=== PATIENT | male | born 1940 | race Caucasian/White ===

== ENCOUNTER → 2017-10-04 | Outpatient (CLI) | payer MEDICARE, OTHER ==
[~2017-10-04] MED LIST: AMIODARONE HCL100 MG PO; ASPIR 8181 MG PO; BRILINTA90 MG PO; CARVEDILOL6.25 MG; COMBIVENT INH; COZAAR 50 MG TA50 M2 PO; CRESTOR10 MG PO; DEMADEX20 MG PO; LISINOPRIL10 MG PO; LOPRESSOR25 PO; PACERONE 200 M200 M1 PO; PLAVIX 75 MG TA75 M1 PO; PRIMIDONE50 MG PO; SPIRONOLACTONE25 MG PO; TOPROL XL50 MG PO
--- NOTE | 2017-10-04 13:38 | 2DMMODE ---
[place] [address] 2 D/M-MODE ECHOCARDIOGRAM Name: PHANAMILCAR MONTAÑO Room: [facility]#: [id number] Admission: 10/04/17 Attend Phys: Archie Neely, Discharge: Date of : 44 Date of Service: 10/04/17 1338 Report #: [id number] THIS REPORT FOR: //name// APPROVED REPORT Study performed: 10/04/2017 09:05:18 EXAM: Comprehensive 2D, Doppler, and color-flow Echocardiogram Patient Location: Out-Patient Status: routine BSA: 1.85 HR: 74 bpm BP: 110/70 mmHg Other Information Study Quality: Good Indications Cardiomyopathy 2D Dimensions LVEF(%): 44.64 (>50%) IVSd: 12.19 (7-11mm) LVOT Diam: 20.61 (18-24mm) LVDd: 58.99 mm PWd: 10.86 (7-11mm) Ascending Ao: 29.47 (22-36mm) LVDs: 45.70 (25-40mm) Aortic Root: 28.15 mm Roberson's LVEF: 44.64 % Volumes Left Atrial Volume (Systole) LA ESV Index: 23.30 mL/m2 Aortic Valve AoV Peak Bryson.: 1.03 m/s AO Peak Gr.: 4.27 mmHg LVOT Max P.07 mmHg AO Mean Gr.: 2.39 mmHg LVOT Mean P.95 mmHg LVOT Max V: 0.72 m/s AO V2 VTI: 20.59 cm LVOT Mean V: 0.44 m/s WILLIAMS (VTI): 2.04 cm2 LVOT V1 VTI: 12.62 cm Mitral Valve E/A Ratio: 0.52 MV Decel. Time: 217.55 [place] [address] 2 D/M-MODE ECHOCARDIOGRAM Name: AMILCAR CHISHOLM Room: [facility]#: [id number] Admission: 10/04/17 Attend Phys: Archie Neely, Discharge: Date of : 44 Date of Service: 10/04/17 1338 Report #: [id number] MV E Max Bryson.: 0.49 m/s MV PHT: 63.09 ms MVA (PHT): 3.49 cm2 TDI E/Lateral E': 7.00 E/Medial E': 8.17 Medial E' Bryson.: 0.06 m/s Lateral E' Bryson.: 0.07 m/s Pulmonary Valve PV Peak Bryson.: 0.78 m/s PV Peak Gr.: 2.45 mmHg Left Ventricle Left ventricle is mildly dilated. There is diffuse hypokinesis of LV wall motion There is normal left ventricular wall thickness. Left ventricular systolic function is severely decreased. LVEF is 25%. Grade I - abnormal relaxation pattern. Right Ventricle The right ventricle is normal size. The right ventricular systolic function is normal. Atria The left atrium size is normal. The right atrium size is normal. Aortic Valve Aortic valve is mildly calcified. Trace aortic regurgitation. There is no aortic valvular stenosis. Mitral Valve The mitral valve is normal in structure. Mild mitral regurgitation. No evidence of mitral valve stenosis. Tricuspid Valve The tricuspid valve is normal in structure. There is no tricuspid valve regurgitation noted. Pulmonic Valve The pulmonary valve is normal in structure. Mild pulmonic regurgitation. Great Vessels The aortic root is normal in size. IVC is normal in size and collapses with >50% [place] [address] 2 D/M-MODE ECHOCARDIOGRAM Name: PHANAMILCAR MONTAÑO Room: [facility]#: [id number] Admission: 10/04/17 Attend Phys: Archie Neely, Discharge: Date of : 44 Date of Service: 10/04/17 1338 Report #: [id number] Pericardium There is no pericardial effusion. <Conclusion> Left ventricle is mildly dilated. There is normal left ventricular wall thickness. Left ventricular systolic function is severely decreased. LVEF is 25%. Grade I - abnormal relaxation pattern. The right ventricle is normal size. The left atrium size is normal. The right atrium size is normal. Aortic valve is mildly calcified. Trace aortic regurgitation. There is no aortic valvular stenosis. The mitral valve is normal in structure. Mild mitral regurgitation. The tricuspid valve is normal in structure. IVC is normal in size and collapses with >50% inspiration There is no pericardial effusion. There is diffuse hypokinesis of LV wall motion <ELECTRONICALLY SIGNED> By: Pranav Gabriel MD, FACC 10/04/17 1338 1338 1338 Pranav Gabriel MD, FACC /INF
== END ==
LOC: M.CRD 08:56
DX: I25.5 Ischemic cardiomyopathy (principal); I34.0 Nonrheumatic mitral (valve) insufficiency; I37.1 Nonrheumatic pulmonary valve insufficiency; I70.0 Atherosclerosis of aorta; I21.3 ST elevation (STEMI) myocardial infarction of unspecified site; I25.119 Atherosclerotic heart disease of native coronary artery with unspecified angina pectoris

== ENCOUNTER → 2017-11-09 | Outpatient (CLI) | payer MEDICARE, OTHER ==
--- NOTE | 2017-11-24 10:46 | SLEEP ---
[address] [address] SLEEP STUDY REPORT Name: PHANAMILCAR Armenta Room: [facility]#: [id number] Admission: 11/09/17 Attend Phys: Archie Neely MD Discharge: Date of : 44 Report #: [id number] THIS REPORT FOR: //name// CC: Sarah Neely This study has been reviewed in its entirety by a board certified sleep specialist date of service 11/09/2017 REFERRING PHYSICIAN: Archie Neely MD [facility]. TYPE OF STUDY: Split night study. METHOD: The following parameters were monitored: Frontal, central and occipital EEG; electro-oculogram; submentalis EMG; nasal and oral airflow; anterior tibialis EMG; body position and electrocardiogram. Additionally, thoracic and abdominal movements were recorded by inductance plethysmography. Oxygen saturation was monitored using pulse oximeter. The tracing was scored using 30-second epochs. Hypopneas were scored per the [place] [employer] definition using the 4% desaturation criteria. DIAGNOSTIC PORTION OF THE STUDY:. During the diagnostic portion of the study, the total recording time was 190.2 minutes. Total sleep time was 118 minutes. Sleep efficiency was 62%. Latency to sleep was 31.8 minutes. SLEEP STAGING: Stage N1 was 36.4% of total sleep time, stage N2 of 44.9% of total sleep time and stage REM 18.9%, total sleep time and no N3 was recorded. RESPIRATORY DATA: During the diagnostic portion of the study, a total of 50 episodes of central apneas were recorded. Occasional episodes of hypopneas were recorded with a total apnea-hypopnea index of 26.9. It was noted these episodes were more pronounced in supine position. OXYGEN DATA: The average O2 saturation recorded was 96%. The lowest O2 saturation recorded was 92%. The limb movement index during the diagnostic portion of the study was 47.8. The average heart rate was 76.7, with no arrhythmias reported. Minimal snoring was recorded during the study. During the titration portion of the study, the patient was titrated on BiPAP at the pressure of 9/6, 10/5, 10/6, 10/7, 11/6, 11/7, 12/6, 12/7, 13/7 cm of water of BiPAP. The longest duration of sleep was captured during pressure of 12/6 cm of water where the central apneas had improved with overall apnea-hypopnea index was 13.8. [place] [address] SLEEP STUDY REPORT Name: AMILCAR CHISHOLM Room: [facility]#: [id number] Admission: 11/09/17 Attend Phys: Archie Neely MD Discharge: Date of : 44 Report #: [id number] The O2 saturation remained 92% and above. 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 RECOMMENDATIONS: 1. Trial of PAP therapy with BiPAP ST therapy at a pressure of 13/7 cm of water and back up rate of 12 /minute , with a close clinical followup and data download. 2. Recommend evaluation for the cause of central sleep apnea, which could be related to heart failure or neurological disease. 3. If the patient has hypersomnia avoid driving or operating machinery while sleepy. 4. Avoid alcohol, hypnotics, sedatives close to bedtime. <ELECTRONICALLY SIGNED> By: Fransisco Cohen MD 11/24/17 1046 1136 1222Dlouisa Cohen MD /nt
== END ==
LOC: M.SLEEPLAB 20:00
DX: G47.30 Sleep apnea, unspecified (principal); I48.91 Unspecified atrial fibrillation

== ENCOUNTER → 2017-12-06 | Outpatient (CLI) | payer MEDICARE, OTHER ==
[2017-12-06 13:06] LABS: HEMATOCRIT 42.5 % (42.0-52.0); HEMOGLOBIN 14.2 gm/dL (14.0-18.0); MCH 31.1 pg (26.0-34.0); MCHC 33.5 g/dL (28.0-37.0); MCV 92.7 fL (80.0-100.0); MPV 9.5 fl. (7.2-11.1); RBC 4.58 mil/uL (4.50-6.00); RDW-CV 13.3 % (10.5-14.5); WBC 10.7 thou/uL (4.0-11.0)
[2017-12-06 13:15] LABS: ALBUMIN 4.1 g/dL (3.4-5.0); CALCIUM 9.2 mg/dL (8.5-10.1); CREATININE 1.3 mg/dL (0.6-1.3); POTASSIUM 4.3 mmol/L (3.5-5.1); TOTAL BILIRUBIN 0.4 mg/dL (<0.1-1.0); TOTAL PROTEIN 7.7 g/dL (6.4-8.2)
== END ==
LOC: M.LAB 12:42
PROVIDERS: Internal Medicine Pulmonary Disease
DX: J44.1 Chronic obstructive pulmonary disease with (acute) exacerbation (principal); I25.10 Atherosclerotic heart disease of native coronary artery without angina pectoris; I25.5 Ischemic cardiomyopathy; G47.31 Primary central sleep apnea; I48.91 Unspecified atrial fibrillation; I50.22 Chronic systolic (congestive) heart failure; I10 Essential (primary) hypertension; G25.81 Restless legs syndrome; R53.83 Other fatigue

== ENCOUNTER → 2018-12-05 | Outpatient (CLI) | payer MEDICARE, OTHER ==
--- NOTE | 2018-12-14 11:44 | SLEEP ---
[address] [address] SLEEP STUDY REPORT Name: AMILCAR CHISHOLM Room: [facility]#: [id number] Admission: 12/05/18 Attend Phys: Geronimo Reid MD Discharge: Date of : 44 Report #: [id number] THIS REPORT FOR: //name// CC: Sarah Reid MD This study has been reviewed in its entirety by a board certified sleep specialist DATE OF SERVICE: 12/06/2018 HOME SLEEP STUDY ATTENDING PHYSICIAN: Dr. Geronimo Reid. The patient is 78 years old, who weighs 150 pounds with a BMI of 21.5. The patient underwent home sleep study performed by [facility]. Total recording time was 589 minutes. During the night study, the patient had 27 central apneas, 225 obstructive apneas and no mixed apneas and 28 hypopneas. The patient's apnea-hypopnea index was 28.6 per hour with a supine index of 32 per hour. Nocturnal oximetry study revealed an average oxygen saturation of 94% with a lowest of 80%. Mean heart rate was 73 beats per minute. IMPRESSION: 1. Moderate to severe sleep apnea-hypopnea syndrome. Total AHI of 28.6 per hour with a supine AHI of 32 per hour. 2. No clinically significant nocturnal hypoxia. RECOMMENDATIONS: 1. The patient would benefit from treatment of underlying sleep apnea with either oral appliance as recommended by the dentist versus a trial of CPAP. 2. Once the patient is optimally treated with above, then follow up in 4-6 weeks to assess compliance with treatment and to document clinical improvement. 3. Avoid [place] [address] SLEEP STUDY REPORT Name: AMILCAR CHISHOLM Room: [facility]#: [id number] Admission: 12/05/18 Attend Phys: Geronimo Reid MD Discharge: Date of : 44 Report #: [id number] 4. Cautioned regarding driving until symptoms of sleep apnea resolve with the above recommendations. <ELECTRONICALLY SIGNED> By: Willie Castano MD 12/14/18 1144 1010 1019Arebekah Castano MD /nt
== END ==
LOC: M.SLEEPLAB 09:00
DX: G47.33 Obstructive sleep apnea (adult) (pediatric) (principal); G47.31 Primary central sleep apnea; Z68.21 Body mass index [BMI] 21.0-21.9, adult

== ENCOUNTER 2019-12-01 21:33 | Observation (INO) | payer MEDICARE, OTHER ==
[~2019-12-01] VITALS: Ht 177.8 cm; Wt 66.2 kg
[~2019-12-01 21:33] MED LIST changes: +CARVEDILOL3.125 MG PO; -CARVEDILOL6.25 MG
[2019-12-01 21:34] VITALS: BP 184/115
[2019-12-01] MEDS ORDERED: VITAMIN C500 M2 PO (21:49)
[2019-12-01] MEDS ORDERED: PLAVIX 75 MG TA75 M1 PO (21:49)
[2019-12-01] MEDS ORDERED: FISH OIL 1,0001 EAC9 PO (21:49)
[2019-12-01] MEDS ORDERED: TREZIX PO (21:53)
[2019-12-01] MEDS ORDERED: TRELEGY ELLIPT1 EACH INH (21:54)
[2019-12-01 22:07] LABS: ABSOLUTE BASOPHILS 0.1 thou/uL (0.0-0.2); ABSOLUTE EOSINOPHILS 0.3 thou/uL (0.0-0.7); ABSOLUTE LYMPHOCYTES 5.4 thou/uL (0.8-5.3); ABSOLUTE MONOCYTES 0.9 thou/uL (0.0-1.2); ABSOLUTE NEUTROPHILS 7.1 thou/uL (1.6-8.1); BASOPHILS 0.6 %; EOSINOPHILS 2.5 %; HEMATOCRIT 35.6 % (42.0-52.0); HEMOGLOBIN 10.8 gm/dL (14.0-18.0); LYMPHOCYTES 39.4 %; MCH 21.5 pg (26.0-34.0); MCHC 30.4 g/dL (28.0-37.0); MCV 70.7 fL (80.0-100.0); MONOCYTES 6.3 %; MPV 9.8 fl. (7.2-11.1); NUCLEATED RBCS 0 /100WBC; PLATELET COUNT* 191 thou/uL (150-400); POLYS 51.2 %; RBC 5.04 mil/uL (4.50-6.00); RDW-CV 21.3 % (10.5-14.5); WBC 13.8 thou/uL (4.0-11.0)
[2019-12-01 22:15] LABS: CALCIUM 8.6 mg/dL (8.5-10.1); CREATININE 1.6 mg/dL (0.6-1.3); POTASSIUM 4.3 mmol/L (3.5-5.1)
[2019-12-01 22:16] LABS: INR 1.1; PROTIME 11.3 Seconds (9.20-11.50)
[2019-12-01 22:20] LABS: ALBUMIN 4.1 g/dL (3.4-5.0); TOTAL BILIRUBIN 0.5 mg/dL (<0.1-1.0); TOTAL PROTEIN 7.8 g/dL (6.4-8.2)
[2019-12-01 22:40] LABS: OVALOCYTES Occasional
[2019-12-01 22:41] LABS: ANISOCYTOSIS 2+; PLATELET ESTIMATE ADEQUATE
[2019-12-01 22:42] LABS: MICROCYTES 2+; SCHISTOCYTES Occasional
[2019-12-01 22:44] LABS: HYPOCHROMASIA 1+
[2019-12-02] VITALS (7 sets, daily range): BP systolic 95–119; BP diastolic 57–78
[2019-12-02 00:44] LABS: INFLUENZA A ANTIGEN Negative (Negative); INFLUENZA B ANTIGEN Negative (Negative)
--- NOTE | 2019-12-02 11:05 | CON ---
[address] [address] CONSULTATION Name: AMILCAR CHISHOLM Room: [address] [facility]#: [id number] Admission: 12/01/19 Attend Phys: Marshall Keys MD Discharge: Date of : 44 Report #: [id number] THIS REPORT FOR: //name// cc: Sarah Tellez Linda J. DO THIS REPORT FOR: //name// CC: Marshall Schmidt DATE OF SERVICE: 12/02/2019 CARDIOLOGY CONSULTATION HISTORY OF PRESENT ILLNESS: The patient is a 79-year-old white male who I was asked to see in the hospital after he complained of being short of breath. The patient has an extensive and complicated past medical history. He has had multiple stents in the past. His first stent was placed in 2004 at [facility]. His last stent was placed in 2017 in [place], [place]. He has had a total of 5 stents. He has a history of an ischemic cardiomyopathy. His first defibrillator was implanted in 2018 at [facility]. He is followed by Dr. Neely at that time. Recently, he was admitted to [place] where he spends the winter. He underwent mitral valve clip for mitral regurgitation. He actually just saw my nurse practitioner, Roxanna Pena 10 days ago. He was doing well until last night, he developed shortness of breath. Denied any chest pain, fever, cough, edema. Denied noncompliance. Denied any palpitations, syncope. He came to the hospital and was admitted. PAST MEDICAL HISTORY: He has had hernia repair, knee surgery, hypertension, hyperlipidemia. MEDICATIONS: Consists of carvedilol, nebulized treatments, Plavix, Demadex as needed, aspirin, Crestor, CPAP. ALLERGIES: He has no known drug allergies. FAMILY HISTORY: Negative for heart disease. SOCIAL HISTORY: He is . He and his live in [place]. Retired from [employer]. Smokes half pack of cigarettes. No alcohol abuse. REVIEW OF SYSTEMS: He has had previous TIA. No history of liver disease, kidney disease, cancer, psychiatric illness, chronic skin condition, [place] [address] CONSULTATION Name: AMILCAR CHISHOLM Room: [address] [facility]#: [id number] Admission: 12/01/19 Attend Phys: Marshall Keys MD Discharge: Date of : 44 Report #: [id number] PHYSICAL EXAMINATION: GENERAL: Revealed an elderly male, lying in bed, appeared in no distress. VITAL SIGNS: Blood pressure is 110/60, pulse is 80. He is afebrile. HEENT: He was anicteric. Conjunctivae are pink. Mucous membranes moist. NECK: Veins nondistended. No carotid bruits. CHEST: Clear to auscultation. CARDIOVASCULAR: Regular rate and rhythm. No significant murmurs. ABDOMEN: Soft. EXTREMITIES: Had no edema. Posterior tibial pulse 2+ bilaterally. SKIN: Cool and dry. NEUROLOGIC: Nonfocal. RADIOLOGICAL DATA: His ECG showed P-wave sensing and ventricular capture, occasional PVC. His echocardiogram done in [place] in 09/2019 showed an ejection fraction of 30%, severe mitral regurgitation, left atrial enlargement. LABORATORY DATA: His lab work last night showed cardiomegaly, mild pulmonary congestion, defibrillator implant in place. His lab work, sodium 142, BUN 16, creatinine 1.6. His liver function studies were normal. BNP 1965. His white blood cell count 13.8, hemoglobin 10.8, hematocrit 35.6. IMPRESSION AND RECOMMENDATIONS: 1. Coronary artery disease. No recent angina. I would continue Plavix. 2. Cardiomyopathy. The patient is on a beta rigoberto. I would recommend starting Aldactone. If tolerated, I would consider Entresto. I would consider spironolactone. 3. Hyperlipidemia. The patient is on a statin drug. 4. Tobacco abuse. 5. Chronic obstructive pulmonary disease. The patient followed by Pulmonary. 6. Previous implantation of defibrillator. 7. Recent mitral valve clip for mitral regurgitation. <ELECTRONICALLY SIGNED> By: Carlos Manuel Carcamo MD, FACC 12/02/19 1105 0921 1009Dafareed Carcamo MD, FACC /nt
--- NOTE | 2019-12-02 11:23 | EKG ---
[place] [address] ELECTROCARDIOGRAM REPORT Name: AMILCAR CIHSHOLM Room: [address] M.R.#: [id number] Admission: 12/01/19 Attend Phys: Marshall Keys, Discharge: Date of : 44 Date of Service: 12/01/192136 Report #: [id number] THIS REPORT FOR: //name// [facility] ED Test Date: 2019-12-01 Test Time: 21:37:00 Pat Name: AMILCAR CHISHOLM Department: Room: [facility] Gender: M Grand Scribe: : 1940 Requested By: Anuj Cortes Order Number: [id number] MD: Carlos Manuel Carcamo Measurements Intervals [place] Rate: 114 P: 25 NE: 48 QRS: 10 QRSD: 129 T: 167 QT: 321 QTc: 443 Interpretive Statements sinus tachycardia with pvc's LBBB Baseline wander in lead(s) I,II,aVR,V1 Compared to ECG 02/24/2015 07:25:53 Sinus rhythm no longer present pvc's noted Electronically Signed On 12-02-2019 11:21:53 CDT by Carlos Manuel Carcamo [email or web address] <ELECTRONICALLY SIGNED> By: Carlos Manuel Carcamo MD, FACC 12/02/19 1121 36 36 Carlos Manuel Carcamo MD, FAC /EPI
== END 2019-12-02 13:00 | disposition home or self-care (01) ==
LOC: M.ERS 21:33 → M.ORTHSURG 23:13 → M.TBA-ER 23:13 → M.ORTHSURG 12-02 00:15
PROVIDERS: Emergency Medicine Emergency Medical Services; ADMIT Internal Medicine
DX: I50.23 Acute on chronic systolic (congestive) heart failure (principal); I25.10 Atherosclerotic heart disease of native coronary artery without angina pectoris; J44.1 Chronic obstructive pulmonary disease with (acute) exacerbation; I25.2 Old myocardial infarction; I11.0 Hypertensive heart disease with heart failure; I48.91 Unspecified atrial fibrillation; J96.01 Acute respiratory failure with hypoxia; I21.4 Non-ST elevation (NSTEMI) myocardial infarction; E78.5 Hyperlipidemia, unspecified; I25.5 Ischemic cardiomyopathy; F17.200 Nicotine dependence, unspecified, uncomplicated; I44.7 Left bundle-branch block, unspecified; I13.0 Hypertensive heart and chronic kidney disease with heart failure and stage 1 through stage 4 chronic kidney disease, or unspecified chronic kidney disease; N18.3 Chronic kidney disease, stage 3 (moderate); R73.9 Hyperglycemia, unspecified; Z95.1 Presence of aortocoronary bypass graft; Z95.5 Presence of coronary angioplasty implant and graft

== ENCOUNTER → 2021-02-10 | Outpatient (CLI) | payer MEDICARE, OTHER ==
[~2021-02-10] MED LIST changes: +FISH OIL 1,0001 EAC9 PO; +TRELEGY ELLIPT1 EACH INH; +TREZIX PO; +VITAMIN C500 M2 PO
[2021-02-10 10:30] LABS: ABSOLUTE BASOPHILS 0.1 thou/uL (0.0-0.2); ABSOLUTE EOSINOPHILS 0.2 thou/uL (0.0-0.7); ABSOLUTE LYMPHOCYTES 1.6 thou/uL (0.8-5.3); ABSOLUTE MONOCYTES 0.5 thou/uL (0.0-1.2); ABSOLUTE NEUTROPHILS 5.1 thou/uL (1.6-8.1); EOSINOPHILS 2.1 %; HEMATOCRIT 39.6 % (42.0-52.0); HEMOGLOBIN 12.8 gm/dL (14.0-18.0); MCH 25.2 pg (26.0-34.0); MCHC 32.4 g/dL (28.0-37.0); MCV 77.8 fL (80.0-100.0); MONOCYTES 6.8 %; MPV 9.3 fl. (7.2-11.1); NUCLEATED RBCS 0 /100WBC; PLATELET COUNT* 118 thou/uL (150-400); POLYS 68.1 %; RBC 5.09 mil/uL (4.50-6.00); RDW-CV 20.1 % (10.5-14.5); WBC 7.5 thou/uL (4.0-11.0)
[2021-02-10 10:49] LABS: CALCIUM 8.9 mg/dL (8.5-10.1); CREATININE 1.3 mg/dL (0.6-1.3); TOTAL BILIRUBIN 0.5 mg/dL (<0.1-1.0); TOTAL PROTEIN 7.5 g/dL (6.4-8.2)
[2021-02-10 10:59] LABS: HYPOCHROMASIA Occasional; PLATELET ESTIMATE DECREASED
[2021-02-10 11:00] LABS: ANISOCYTOSIS Occasional; MACROCYTES Occasional
[2021-02-10 11:40] LABS: ESR (SEDRATE) 5 mm/hr (0-20)
== END ==
LOC: M.LAB 09:56 → M.CT 11:00
PROVIDERS: ATTEND Internal Medicine Gastroenterology
DX: K57.30 Diverticulosis of large intestine without perforation or abscess without bleeding (principal); D50.9 Iron deficiency anemia, unspecified; R63.4 Abnormal weight loss; N28.1 Cyst of kidney, acquired

== ENCOUNTER → 2021-04-04 | Outpatient (CLI) | payer MEDICARE, OTHER ==
[2021-04-04 09:43] LABS: CREATININE 1.3 mg/dL (0.6-1.3)
== END | disposition home or self-care (01) ==
LOC: M.LAB 08:46 → M.CT 11:00
PROVIDERS: ATTEND Internal Medicine
DX: R91.8 Other nonspecific abnormal finding of lung field (principal); I51.7 Cardiomegaly; R59.0 Localized enlarged lymph nodes; J90 Pleural effusion, not elsewhere classified; J98.11 Atelectasis

== ENCOUNTER 2021-06-16 22:16 | Inpatient (IN) | payer MEDICARE, OTHER ==
[~2021-06-16] VITALS: Ht 177.8 cm; Wt 61.2 kg
[~2021-06-16 22:16] MED LIST changes: +ADULT LOW DOSE81 MG PO; -ASPIR 8181 MG PO
[2021-06-16 22:25] VITALS: BP 154/79
[2021-06-16] MEDS ORDERED: TORSEMIDE20 MG PO (22:27)
[2021-06-16 22:45] LABS: ABSOLUTE BASOPHILS 0.1 thou/uL (0.0-0.2); ABSOLUTE EOSINOPHILS 0.1 thou/uL (0.0-0.7); ABSOLUTE LYMPHOCYTES 1.7 thou/uL (0.8-5.3); ABSOLUTE MONOCYTES 0.6 thou/uL (0.0-1.2); ABSOLUTE NEUTROPHILS 5.4 thou/uL (1.6-8.1); BASOPHILS 1.1 %; EOSINOPHILS 1.6 %; HEMATOCRIT 43.2 % (42.0-52.0); LYMPHOCYTES 21.8 %; MCH 28.2 pg (26.0-34.0); MCHC 32.5 g/dL (28.0-37.0); MCV 86.8 fL (80.0-100.0); MONOCYTES 7.4 %; NUCLEATED RBCS 0 /100WBC; PLATELET COUNT* 137 thou/uL (150-400); POLYS 68.1 %; RBC 4.98 mil/uL (4.50-6.00); RDW-CV 17.1 % (10.5-14.5); WBC 7.9 thou/uL (4.0-11.0)
[2021-06-16 22:54] LABS: CALCIUM 9.3 mg/dL (8.5-10.1); CREATININE 1.4 mg/dL (0.6-1.3); POTASSIUM 3.7 mmol/L (3.5-5.1)
[2021-06-16 23:05] LABS: ALBUMIN 3.6 g/dL (3.4-5.0); MAGNESIUM 2.3 mg/dL (1.8-2.4); TOTAL BILIRUBIN 0.6 mg/dL (<0.1-1.0); TOTAL PROTEIN 7.2 g/dL (6.4-8.2)
[2021-06-17] VITALS (7 sets, daily range): BP systolic 97–133; BP diastolic 54–93
[2021-06-17 02:32] LABS: URINE BILIRUBIN NEGATIVE (Negative); URINE BLOOD NEGATIVE (Negative); URINE CLARITY CLEAR; URINE COLOR YELLOW; URINE GLUCOSE-RANDOM NEGATIVE (Negative); URINE KETONES TRACE (Negative); URINE LEUKOCYTES-REFLEX NEGATIVE (Negative); URINE NITRITE-REFLEX NEGATIVE (Negative); URINE PROTEIN TRACE (Negative)
[2021-06-17 10:35] LABS: APTT 25.9 Seconds (25.0-31.3); INR 1.2; PROTIME 12.4 Seconds (9.20-11.50)
[2021-06-17 13:02] LABS: BF RBC 3904 /mm3; TOTAL CELL COUNT 846 /mm3
[2021-06-17 13:03] LABS: TOTAL VOLUME 950 ml
[2021-06-17 13:04] LABS: CLARITY SLIGHTLY HAZY
[2021-06-17 13:06] LABS: BF LYMPHOCYTES 44 %; BF MONOCYTES 33 %; BF POLYS 23 %
[2021-06-17 13:07] LABS: SOURCE THORACENTESIS
--- NOTE | 2021-06-17 13:14 | EKG ---
[place] [address] ELECTROCARDIOGRAM REPORT Name: AMILCAR CHISHOLM Room: [place] [address] ADM [place] [facility].#: [id number] Admission: 06/17/21 Attend Phys: Ana Weinberg, Discharge: Date of : 44 Date of Service: 06/16/212221 Report #: [id number] THIS REPORT FOR: //name// [facility] ED Test Date: 2021-06-16 Test Time: 22:22:12 Pat Name: AMILCAR CHISHOLM Department: Room: [facility] Gender: M Vice President Of Contracts: ALBERT : 1940 Requested By: Seble Carvajal Order Number: [id number] MD: Carlos Manuel Carcamo Measurements Intervals [place] Rate: 103 P: 244 ND: 58 QRS: -34 QRSD: 119 T: 116 QT: 326 QTc: 427 Interpretive Statements atrial sensed and Ventricular-paced complexes with PVC's No further analysis attempted due to paced rhythm Compared to ECG 12/01/2019 21:37:00 no change Electronically Signed On 06-17-2021 13:14:17 CDT by Carlos Manuel Carcamo [email or web address] <ELECTRONICALLY SIGNED> By: Carlos Manuel Carcamo MD, FACC 06/17/21 1314 21 21 Carlos Manuel Carcamo MD, FACC /EPI
[2021-06-18 00:35] VITALS: BP 108/70
[2021-06-18 04:46] LABS: HEMATOCRIT 38.4 % (42.0-52.0); HEMOGLOBIN 12.5 gm/dL (14.0-18.0); MCH 28.1 pg (26.0-34.0); MCHC 32.6 g/dL (28.0-37.0); MCV 86.2 fL (80.0-100.0); MPV 9.5 fl. (7.2-11.1); RBC 4.45 mil/uL (4.50-6.00); RDW-CV 16.9 % (10.5-14.5); WBC 13.6 thou/uL (4.0-11.0)
[2021-06-18 04:51] VITALS: BP 102/68
[2021-06-18 05:15] LABS: CALCIUM 8.7 mg/dL (8.5-10.1); CREATININE 1.3 mg/dL (0.6-1.3); MAGNESIUM 2.1 mg/dL (1.8-2.4); POTASSIUM 3.5 mmol/L (3.5-5.1); TOTAL BILIRUBIN 0.5 mg/dL (<0.1-1.0); TOTAL PROTEIN 6.3 g/dL (6.4-8.2)
[2021-06-18 08:00] VITALS: BP 115/67
--- NOTE | 2021-06-18 08:18 | CON ---
[address] [address] CONSULTATION Name: AMILCAR CHISHOLM Room: [address] IN M.R.#: [id number] Admission: 06/17/21 Attend Phys: Ana Weinberg MD Discharge: Date of : 44 Report #: [id number] THIS REPORT FOR: cc: Sarah Tellez Linda J. DO Pervez, Adeel MD ~ DATE OF CONSULTATION: 06/17/2021 REQUESTING PHYSICIAN: Dr. Weinberg. INDICATION FOR CONSULTATION: Lung mass and hilar lymphadenopathy. HISTORY OF PRESENT ILLNESS: This is a 80-year-old gentleman. He has a history of congestive heart failure with a left ventricular ejection fraction decreased to around 35%. He also has had mitral regurgitation in the past and is status post mitral clip. He has a biventricular AICD in place. He is an active smoker and has been an active smoker for several decades; however, his previous lung function testing only show minimal abnormalities. He is not on supplemental oxygen. 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 This has been present at least since 2017 when he had a bronchoscopy performed in [facility]; the details from that time are not available to me at this time. He has been followed by the pulmonary group at [place] more recently. He is reported to have had a PET scan earlier this year and this has been followed with CAT scans since December with no major change. I do not have the PET scan report available; however, according to the records from [place], the mass did not show any increase in activity on the PET scan. The patient is now presented with shortness of breath of several days' duration. He has also had a cough. There is not much sputum; in fact does not have much increase in swelling of lower extremities. He does not have calf pain. He does not have upper respiratory complaints either. He initially was hypoxemic. Note that he has not been on oxygen before and required 2-3 liters of oxygen to maintain O2 saturation in the low 90s. The patient has now had a thoracentesis. He is also being diuresed. Currently, he is on room air. REVIEW OF SYSTEMS: The patient's review of systems for a 12 points is negative except as mentioned above. PAST MEDICAL HISTORY: Congestive heart failure, systolic, chronic, status post AICD placement, left ventricular ejection fraction on the echo performed in 2018 was only 25%. There is also significant mitral regurgitation in the past and status post mitral valve clip. According to the Cardiology note, his ejection fraction is 35%. It is not known to me as to whether there is a more recent measure of his left ventricular ejection fraction present. 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#: [id number] Admission: 06/17/21 Attend Phys: Ana Weinberg MD Discharge: Date of : 44 Report #: [id number] [facility]. According to the records from [place], it is stable at least since December. There is also mild lymphadenopathy. PET scan earlier this year, according to the [place] records did not show any increase in activity in this region. There is minimal obstructive lung disease, on previous PFTs since 2014 as well as a spirometry was performed at [place] earlier this year, mild renal insufficiency. His baseline creatinine is 1.3. History of left bundle branch block, atrial fibrillation. He is not on anticoagulation, status post cardiac stents, hyperlipidemia. SOCIAL HISTORY: He is an active smoker and has now cut down to half pack a day, has smoked more in the past, been smoker, more than 50 years. No known history of heavy alcohol use or illegal drug use. CURRENT MEDICATIONS: List in [place] reviewed. HOME MEDICATIONS: List also in [place] reviewed. IMMUNIZATION HISTORY: Has had 3 doses of mRNA COVID-19 vaccine. ALLERGIES: No known drug allergies. PHYSICAL EXAMINATION: GENERAL: He is alert, awake and oriented. Does not appear to be in any distress at this time. VITAL SIGNS: Pulse of 72 and a blood pressure 112/62, he is saturating 97%. He is not on supplemental oxygen, his respiratory rate is 16. He is afebrile with a temperature of 36.9. HEENT: Head is normocephalic and atraumatic. Pupils are equal and reactive. There is no throat erythema. NECK: Does not show raised JVP, asymmetry, mass or lymph nodes. CHEST: Symmetrical expansion on inspection and palpation. On auscultation, breath sounds are bilaterally equal. I do not hear any added sounds. HEART: Regular. There is no murmur. ABDOMEN: Soft and nontender. EXTREMITIES: Lower extremities show no edema, no calf tenderness. SKIN: Dry and intact. NEUROLOGIC: Moves all extremities bilaterally equally and spontaneously with no focal deficit identified. LABORATORY DATA: The patient has had two chest x-ray was performed; the first one shows increase in pulmonary vascular congestion. He also had a CTA chest performed, which does show pleural effusions, is not that clearly visible on the initial chest x-ray, known mass and lymphadenopathy noted. He had a subsequent chest x-ray performed today which shows resolution of previously seen increase [address] [place] [address] CONSULTATION Name: AMILCAR CHISHOLM Room: [address] [place] M.R.#: [id number] Admission: 06/17/21 Attend Phys: Ana Weinberg MD Discharge: Date of : 44 Report #: [id number] in pulmonary vascular congestion. ASSESSMENT AND PLAN: 1. Shortness of breath. The patient's chest x-ray findings as well as CT findings are consistent with left ventricular failure leading to acute pulmonary edema and development of pleural effusions. These findings appear to have already resolved significantly improved on the chest x-ray performed today. His underlying obstructive lung disease is minimal to mild and it does not appear to me that bronchospasm is playing a major role here; also the infiltrate seen primarily due to pulmonary edema. 2. Cavitary lung mass and lymphadenopathy. See discussion above; findings are at least stable since December and have been present since 2018. It is not known to me how these have progressed since 2018. The patient desires further followup of this will be deferred to his regular traffic controller cable at [place] and therefore, we will also defer to their outpatient followup. 3. Acute pulmonary edema/left ventricular failure. Interestingly, there does not appear to be much right heart failure, which we will go with history of mitral regurgitation. Findings are already significantly better. I would defer followup to the primary and Cardiology services. However, considering that there is an elevation in creatinine, may at this time, consider cutting back on diuresis. 4. Minimal to mild obstructive lung disease. I will cut back on his steroid. We will also start cutting back on his breathing treatments. 5. Pulmonary infiltrates, primarily these are secondary to pulmonary edema; reasonable to continue broad spectrum antibiotic, as doxycycline does have some nephrotoxicity. I decided to discontinue doxycycline and continue with ceftriaxone. This could be switched over to oral antibiotics or discontinued soon if he continues to improve. 6. Pleural Effusions. Likely transudate 2nd to CHF, requested protein and LDH to be added to analysis already send, will also follow cytology 6. Suspected nocturnal hypoxemia/obstructive and central sleep apnea. I strongly suspect that the patient would have desaturations while asleep. I recommend that we at least do a Nocturnal pulse oximetry. I offered to the patient to have the same performed while he is here to our hospital. The patient prefers that we defer to outpatient followup at [place] and in my opinion as well it is not urgent to perform a nocturnal pulse oximetry. 7. Mild chronic renal insufficiency, baseline creatinine 1.3. If not already performed in the past a renal ultrasound could be considered. 8. Deep venous thrombosis prophylaxis. He is on Lovenox. Also noted that he is on Plavix with the [place] [address] CONSULTATION Name: PHANZENAAMILCAR Kathi Room: [address] [place] ..#: [id number] Admission: 06/17/21 Attend Phys: Ana Weinberg MD Discharge: Date of : 44 Report #: [id number] Thanks for this consultation. <ELECTRONICALLY SIGNED> By: Yuriy Aiken MD 06/18/21 0818 2205Asimona Aiken MD /nt
[2021-06-18 12:00] VITALS: BP 122/70
[2021-06-18] MEDS ORDERED: CEFDINIR300 MG PO (15:40)
[2021-06-18 16:18] VITALS: BP 122/70
== END 2021-06-18 16:30 | disposition home or self-care (01) | DRG 177 ==
LOC: M.ERS 22:16 → M.TBA-ER 06-17 02:40 → M.ORTHSURG 06-17 09:23 → M.TBA-ER 06-17 09:23 → M.ORTHSURG 06-17 18:13
PROVIDERS: Emergency Medicine; Registered Nurse; ADMIT Internal Medicine; ATTEND Internal Medicine
PROC: 0W993ZZ Drainage of Right Pleural Cavity, Percutaneous Approach (ICD-10-PCS; principal; 2021-06-18)
DX: J15.6 Pneumonia due to other Gram-negative bacteria (principal); J96.01 Acute respiratory failure with hypoxia; I50.23 Acute on chronic systolic (congestive) heart failure; J81.0 Acute pulmonary edema; J44.1 Chronic obstructive pulmonary disease with (acute) exacerbation; I13.0 Hypertensive heart and chronic kidney disease with heart failure and stage 1 through stage 4 chronic kidney disease, or unspecified chronic kidney disease; D68.69 Other thrombophilia; J44.0 Chronic obstructive pulmonary disease with (acute) lower respiratory infection; I25.10 Atherosclerotic heart disease of native coronary artery without angina pectoris; I25.5 Ischemic cardiomyopathy; E78.5 Hyperlipidemia, unspecified; Z20.822 Contact with and (suspected) exposure to COVID-19; R91.8 Other nonspecific abnormal finding of lung field; R59.1 Generalized enlarged lymph nodes; F17.210 Nicotine dependence, cigarettes, uncomplicated; N18.9 Chronic kidney disease, unspecified; Z86.73 Personal history of transient ischemic attack (TIA), and cerebral infarction without residual deficits; I25.2 Old myocardial infarction; Z95.5 Presence of coronary angioplasty implant and graft; Z95.810 Presence of automatic (implantable) cardiac defibrillator